=== PATIENT | female | born 1945 | race Caucasian/White ===

== ENCOUNTER → 2017-09-02 | Outpatient (CLI) | payer MEDICARE, MEDICAID, SELFPAY ==
[~2017-09-02] MED LIST: LIDOCAINE 1% MDV 20ML VIAL As Ordered
== END ==
LOC: M RADPRO 12:18
DX: R92.0 Mammographic microcalcification found on diagnostic imaging of breast (principal); I74.3 Embolism and thrombosis of arteries of the lower extremities; I10 Essential (primary) hypertension; E78.5 Hyperlipidemia, unspecified; J44.9 Chronic obstructive pulmonary disease, unspecified; K21.9 Gastro-esophageal reflux disease without esophagitis; Z79.899 Other long term (current) drug therapy; Z79.82 Long term (current) use of aspirin; Z88.8 Allergy status to other drugs, medicaments and biological substances; Z80.3 Family history of malignant neoplasm of breast; Z87.891 Personal history of nicotine dependence
CPT/HCPCS: 19081

== ENCOUNTER 2019-10-19 16:51 | Emergency (ER) | payer MEDICARE, MEDICAID ==
[~2019-10-19] VITALS: Ht 170.2 cm; Wt 102.3 kg
[2019-10-19] MEDS ORDERED: TAMS1CAP17 (17:08)
[2019-10-19] MEDS ORDERED: PIOG1TAB37 (17:08)
[2019-10-19] MEDS ORDERED: ALBU83IN (17:08)
[2019-10-19] MEDS ORDERED: ESOM40CA35 (17:08)
[2019-10-19] MEDS ORDERED: EZET10TA21 (17:08)
[2019-10-19] MEDS ORDERED: POTA10CA32 (17:08)
[2019-10-19] MEDS ORDERED: TRAD5TAB (17:08)
[2019-10-19] MEDS ORDERED: FAMO20TA5 (17:08)
[2019-10-19] MEDS ORDERED: ARNU1INH3 (17:08)
[2019-10-19] MEDS ORDERED: AMOX500C (17:08)
[2019-10-19] MEDS ORDERED: FURO40TA2 (17:08)
[2019-10-19] MEDS ORDERED: FURO20TA2 (17:08)
[2019-10-19] MEDS ORDERED: CART240C3 (17:08)
[2019-10-19] MEDS ORDERED: CARV25TA (17:08)
[2019-10-19] MEDS ORDERED: PARO30TA4 (17:08)
[2019-10-19] MEDS ORDERED: AMLO1TAB24 (17:08)
[2019-10-19] MEDS ORDERED: ELIQ5TAB (17:08)
[2019-10-19] MEDS ORDERED: ONGL10TA3 (17:08)
[2019-10-19] MEDS ORDERED: MECL12.589 (17:08)
[2019-10-19] MEDS ORDERED: MECLIZINE 25 MG TABLET PO ONE (18:00)
[2019-10-19] MEDS ORDERED: ONDANSETRON 4MG/2ML VIAL As Ordered ONE (18:13)
[2019-10-19] MEDS ORDERED: ONDANSETRON 4 MG ORAL DISINTEGRATING TAB PO ONE (18:15)
[2019-10-19 18:16] LABS: HEMATOCRIT 41.3 % (36.0-47.0); HEMOGLOBIN 13.2 g/dl (12.0-15.5); MEAN CORPUSCULAR HEMOGLOBIN 26.1 pg (27.0-33.0); MEAN CORPUSCULAR VOLUME 81.6 fl (80.0-96.0); PLATELET COUNT, AUTOMATED 319 10^3/uL (150-450); RED BLOOD COUNT 5.06 10^6/uL (4.00-5.40); WHITE BLOOD COUNT 9.4 10^3/uL (4.0-10.0)
[2019-10-19] MEDS ORDERED: POTASSIUM CHLORIDE 10 MEQ SR TABLET PO ONE (18:30)
[2019-10-19] MEDS ORDERED: MECL1TAB31 PO (18:30)
--- NOTE | 2019-10-19 18:30 | REPVR ---
PROCEDURE INFORMATION: Exam: CT Head Without Contrast Exam date and time: 10/19/2019 6:11 PM Age: 74 years old Clinical indication: Pain; Headache; Additional info: Headache on eliquis TECHNIQUE: Imaging protocol: Computed tomography of the head without contrast. Radiation optimization: All CT scans at this facility use at least one of these dose optimization techniques: automated exposure control; mA and/or kV adjustment per patient size (includes targeted exams where dose is matched to clinical indication); or iterative reconstruction. COMPARISON: No relevant prior studies available. FINDINGS: Brain: There is no evidence of intracranial bleed. There are large patchy areas of low density in the periventricular white matter consistent with chronic ischemic changes. There is a 3.5 cm x 2.3 cm area of encephalomalacia posterior aspect of the left occipital lobe and this is consistent with an area of old stroke. There is a 1 cm area of low density in the right anterior external capsule consistent with an area of old ischemic change. The ventricles are normal in size. Bones/joints: There is no evidence of fracture or bony abnormality. Sinuses: Clear paranasal sinuses. Mastoid air cells: Clear mastoid air cells. Soft tissues: Unremarkable. IMPRESSION: 1. No evidence of acute bleed. 2. Severe chronic ischemic changes. 3. Area of old stroke left occipital lobe. Small area of old stroke right basal ganglia region. Electronically signed by: Rasheed Michael On 10/19/2019 18:29:45 PM
[2019-10-19 19:33] VITALS: BP 150/71
--- NOTE | 2019-10-20 09:41 | ECGEPIP ---
[facility] - ED Test Date: 2019-10-19 Pat Name: HIRO RIVAS Department: Room: - Gender: Female [employer] Operator: : [id number] Requested By: Mildred Gandara Order Number: [id number] Reading MD: Cristian Polk Measurements Intervals [place] Rate: 66 P: 46 VA: 173 QRS: 41 QRSD: 109 T: 43 QT: 415 QTc: 435 Interpretive Statements SINUS RHYTHM POOR R WAVE PROGRESSION POSSIBLE PRIOR INFERIOR INFARCT NO PRIORS FOR COMPARISON Electronically Signed on 10-20-2019 9:41:03 EDT by Cristian Polk
== END 2019-10-19 19:39 | disposition home or self-care (01) ==
LOC: M ED 16:51
DX: H81.399 Other peripheral vertigo, unspecified ear (principal); R94.31 Abnormal electrocardiogram [ECG] [EKG]; I48.91 Unspecified atrial fibrillation; I12.9 Hypertensive chronic kidney disease with stage 1 through stage 4 chronic kidney disease, or unspecified chronic kidney disease; E11.9 Type 2 diabetes mellitus without complications; J44.9 Chronic obstructive pulmonary disease, unspecified; N18.9 Chronic kidney disease, unspecified; E78.5 Hyperlipidemia, unspecified; K21.9 Gastro-esophageal reflux disease without esophagitis; F17.200 Nicotine dependence, unspecified, uncomplicated; Z79.01 Long term (current) use of anticoagulants; Z79.2 Long term (current) use of antibiotics; Z79.899 Other long term (current) drug therapy; Z86.73 Personal history of transient ischemic attack (TIA), and cerebral infarction without residual deficits; Z98.890 Other specified postprocedural states
CPT/HCPCS: 36415; 70450; 80047; 85027; 93005; 99284; Q0162

== ENCOUNTER 2023-02-21 15:38 | Emergency (ER) | payer MEDICAID, MEDICARE ==
[~2023-02-21] VITALS: Ht 170.2 cm; Wt 104.5 kg
[~2023-02-21 15:38] MED LIST changes: +ALBU2.5V10; +AMLO1TAB24; +AMOX500C; +ARNU1INH3; +CART240C3; +CARV25TA; +ELIQ5TAB; +ESOM40CA35; +EZET10TA21; +FAMO20TA5; +FURO20TA2; +FURO40TA2; -LIDOCAINE 1% MDV 20ML VIAL As Ordered; +MECL-136; +MECL-209 PO; +ONGL10TA3; +PARO30TA4; +PIOG1TAB37; +POTA10CA60; +TAMS1CAP17; +TRAD5TAB
[2023-02-21 15:54] VITALS: TEMP 97.6
[2023-02-21] MEDS ORDERED: HYDR-3363 PO (16:25)
[2023-02-21] MEDS ORDERED: DULO30CA9 PO (16:25)
[2023-02-21] MEDS ORDERED: METF500T13 PO (16:25)
[2023-02-21] MEDS ORDERED: TRAD5TAB PO (16:25)
[2023-02-21] MEDS ORDERED: TRAM50TA2 PO (16:25)
[2023-02-21] MEDS ORDERED: CARVedilol 12.5 MG TAB PO ONE (16:50)
[2023-02-21] MEDS ORDERED: SILVER NITRATE APPLICATOR (1 = QTY 10) TOP ONE ×2 (16:50→17:15)
[2023-02-21] MEDS ORDERED: OXYMETAZOLINE 0.05% NASAL SPRAY (AFRIN) ONE (16:50)
[2023-02-21] MEDS ORDERED: FUROSEMIDE 20MG/2ML VIAL IV ONE (16:50)
[2023-02-21 17:25] LABS: BASO # 0.1 10^3/uL (0.0-0.2); BASO % 0.5 % (0.0-1.0); EOS # 0.3 10^3/uL (0.0-0.5); EOS % 2.7 % (0.0-3.0); HEMATOCRIT 41.6 % (36.0-47.0); HEMOGLOBIN 13.2 g/dl (12.0-15.5); LYMPH # 2.3 10^3/uL (1.5-5.0); LYMPH % 22.4 % (24.0-44.0); MEAN CORPUSCULAR HEMOGLOBIN 26.1 pg (27.0-33.0); MEAN CORPUSCULAR HGB CONC 31.7 g/dl (32.0-36.5); MEAN CORPUSCULAR VOLUME 82.4 fl (80.0-96.0); MONO # 0.8 10^3/uL (0.0-0.8); NEUTROPHILS # 6.7 10^3/uL (1.5-8.5); PLATELET COUNT, AUTOMATED 300 10^3/uL (150-450); RED BLOOD COUNT 5.05 10^6/uL (4.00-5.40); WHITE BLOOD COUNT 10.1 10^3/uL (4.0-10.0)
[2023-02-21 17:38] LABS: CALCIUM LEVEL 9.4 MG/DL (8.3-10.6); CREATININE FOR GFR 1.31 MG/DL (0.55-1.30); INR 1.22; POTASSIUM SERUM 3.8 MMOL/L (3.5-5.1)
[2023-02-21 17:39] LABS: PARTIAL THROMBOPLASTIN TIME 36.3 SECONDS (24.8-34.2)
[2023-02-21] MEDS ORDERED: hydrALAZINE 20MG/ML 1ML VIAL IV STA (17:53)
[2023-02-21] MEDS ORDERED: **hydrALAZINE HCL** 25 MG TAB PO ONE ×2 (18:45→19:55)
[2023-02-21 19:30] VITALS: BP 158/75; O2SAT 96
[2023-02-21] MEDS ORDERED: HYDR-3910 PO (19:57)
[2023-02-21 20:14] VITALS: BP 174/84
== END 2023-02-21 20:17 | disposition home or self-care (01) ==
LOC: M ED 15:38 → EDBD 15:38 → M ED 20:17
DX: R04.0 Epistaxis (principal); I10 Essential (primary) hypertension; E78.5 Hyperlipidemia, unspecified; K21.9 Gastro-esophageal reflux disease without esophagitis; F17.200 Nicotine dependence, unspecified, uncomplicated; J44.9 Chronic obstructive pulmonary disease, unspecified; E11.9 Type 2 diabetes mellitus without complications; Z86.79 Personal history of other diseases of the circulatory system; Z79.01 Long term (current) use of anticoagulants; Z88.8 Allergy status to other drugs, medicaments and biological substances; Z79.52 Long term (current) use of systemic steroids; Z79.4 Long term (current) use of insulin; Z79.899 Other long term (current) drug therapy
CPT/HCPCS: 80048; 85025; 85610; 85730; 96374; 96375; 99284; J0360; J1940

== ENCOUNTER 2023-04-06 13:15 | Emergency (ER) | payer MEDICARE, OTHER ==
[~2023-04-06] VITALS: Ht 170.2 cm; Wt 106.8 kg
[~2023-04-06 13:15] MED LIST changes: -CARV25TA; +CARV25TA PO; +DULO30CA9 PO; +HYDR-3363 PO; +HYDR-3910 PO; +METF500T13 PO; +TRAD5TAB PO; +TRAM50TA2 PO
[2023-04-06 14:57] LABS: BASO % 0.2 % (0.0-1.0); EOS % 0.2 % (0.0-3.0); HEMATOCRIT 39.4 % (36.0-47.0); HEMOGLOBIN 13.1 g/dl (12.0-15.5); LYMPH # 1.3 10^3/uL (1.5-5.0); MEAN CORPUSCULAR HEMOGLOBIN 26.3 pg (27.0-33.0); MEAN CORPUSCULAR HGB CONC 33.2 g/dl (32.0-36.5); MEAN CORPUSCULAR VOLUME 79.1 fl (80.0-96.0); MONO # 0.8 10^3/uL (0.0-0.8); NEUTROPHILS # 4.4 10^3/uL (1.5-8.5); PLATELET COUNT, AUTOMATED 290 10^3/uL (150-450); RED BLOOD COUNT 4.98 10^6/uL (4.00-5.40); WHITE BLOOD COUNT 6.6 10^3/uL (4.0-10.0)
[2023-04-06 15:31] LABS: ALBUMIN 3.4 G/DL (3.2-5.2); BILIRUBIN,DIRECT 0.2 MG/DL (<0.4); BILIRUBIN,TOTAL 0.4 MG/DL (0.3-1.2); CALCIUM LEVEL 8.6 MG/DL (8.3-10.6); CREATININE FOR GFR 0.99 MG/DL (0.55-1.30); GLOMERULAR FILTRATION RATE 58.1 (>39); POTASSIUM SERUM 3.9 MMOL/L (3.5-5.1); TOTAL PROTEIN 7.3 G/DL (5.7-8.2)
[2023-04-06] MEDS ORDERED: PROB250C PO (18:12)
[2023-04-06] MEDS ORDERED: FLUT15.820 NARES (18:12)
[2023-04-06] MEDS ORDERED: ALEN35TA56 PO (18:12)
[2023-04-06] MEDS ORDERED: NS 1,000 ML IV SCH (18:50)
[2023-04-06 23:22] VITALS: BP 132/85; TEMP 96.9; O2SAT 100
== END 2023-04-06 23:24 | disposition home or self-care (01) ==
LOC: M ED 13:15
DX: R19.7 Diarrhea, unspecified (principal); I25.2 Old myocardial infarction; I10 Essential (primary) hypertension; E78.5 Hyperlipidemia, unspecified; J44.9 Chronic obstructive pulmonary disease, unspecified; Z87.442 Personal history of urinary calculi; Z86.79 Personal history of other diseases of the circulatory system; Z88.8 Allergy status to other drugs, medicaments and biological substances; Z79.52 Long term (current) use of systemic steroids; Z79.899 Other long term (current) drug therapy; Z79.4 Long term (current) use of insulin

== ENCOUNTER → 2023-06-14 | Outpatient (REF) | payer OTHER, MEDICAID ==
[~2023-06-14] MED LIST changes: +ALEN35TA56 PO; +FLUT15.820 NARES; -HYDR-3910 PO; +HYDR25TA87 PO; +PROB250C PO
== END ==
LOC: M LAB REF 13:28
PROVIDERS: ATTEND Internal Medicine Pulmonary Disease
DX: J02.9 Acute pharyngitis, unspecified (principal)

== ENCOUNTER 2023-12-26 21:38 | Emergency (ER) | payer MEDICARE, MEDICAID ==
[~2023-12-26] VITALS: Ht 167.6 cm; Wt 87.2 kg
[~2023-12-26 21:38] MED LIST changes: -POTA10CA60; +POTA10CA70
[2023-12-26] MEDS: OXYMETAZOLINE 0.05% NASAL SPRAY (AFRIN) ONE (22:25)
[2023-12-26 22:40] LABS: BASO % 0.4 % (0.0-1.0); EOS # 0.2 10^3/uL (0.0-0.5); EOS % 1.8 % (0.0-3.0); HEMATOCRIT 37.2 % (36.0-47.0); HEMOGLOBIN 12.1 g/dl (12.0-15.5); LYMPH # 3.6 10^3/uL (1.5-5.0); MEAN CORPUSCULAR HEMOGLOBIN 27.2 pg (27.0-33.0); MEAN CORPUSCULAR HGB CONC 32.5 g/dl (32.0-36.5); MEAN CORPUSCULAR VOLUME 83.6 fl (80.0-96.0); MONO # 0.7 10^3/uL (0.0-0.8); MONO % 6.6 % (2.0-8.0); NEUTROPHILS # 5.8 10^3/uL (1.5-8.5); NEUTROPHILS % 55.9 % (36.0-66.0); PLATELET COUNT, AUTOMATED 298 10^3/uL (150-450); RED BLOOD COUNT 4.45 10^6/uL (4.00-5.40); WHITE BLOOD COUNT 10.3 10^3/uL (4.0-10.0)
[2023-12-26 22:54] LABS: INR 1.34; PARTIAL THROMBOPLASTIN TIME 40.1 SECONDS (24.8-34.2); PROTHROMBIN TIME 16.2 SECONDS (12.5-14.5)
[2023-12-26 23:30] VITALS: BP 137/90; TEMP 97.9; O2SAT 94
== END 2023-12-26 23:58 | disposition home or self-care (01) ==
LOC: M ED 21:38
DX: R04.0 Epistaxis (principal); E11.9 Type 2 diabetes mellitus without complications; I25.2 Old myocardial infarction; I10 Essential (primary) hypertension; J44.9 Chronic obstructive pulmonary disease, unspecified; E78.5 Hyperlipidemia, unspecified; Z86.79 Personal history of other diseases of the circulatory system; Z88.8 Allergy status to other drugs, medicaments and biological substances; Z79.52 Long term (current) use of systemic steroids; Z79.01 Long term (current) use of anticoagulants; Z79.4 Long term (current) use of insulin; Z79.899 Other long term (current) drug therapy